=== PATIENT | female | born 1985 | race Caucasian/White ===

== ENCOUNTER 2018-06-01 21:37 | Inpatient (IN) | payer OTHER ==
[2018-06-01] MEDS: morphine 4 MG/ML VIAL IV (22:09)
[2018-06-01] MEDS: SOD CHLORIDE 0.9% 1,000 ML IV (22:09)
[2018-06-01] MEDS: ONDANSETRON 4 MG INJ IV (22:09)
[2018-06-01 22:16] LABS: ADD MAN DIFF? NO
[2018-06-01 22:23] LABS: WHITE BLOOD COUNT 8.3 10^3/ul (4.8-10.8)
[2018-06-01 22:23] LABS: BASOPHIL # 0.1 10^3/ul (0.0-0.1); BASOPHILS % 0.6 % (0.0-2.0); EOSINOPHILS # 0.1 10^3/ul (0.0-0.5); EOSINOPHILS % 1.6 % (0.0-7.0); HEMATOCRIT 36.3 % (37.0-47.0); HEMOGLOBIN 11.7 g/dl (12.0-16.0); LYMPHOCYTES # 2.4 10^3/ul (0.8-2.9); LYMPHOCYTES % 28.6 % (15.0-51.0); MEAN CORPUSCULAR HEMOGLOBIN 27.2 pg (29.0-33.0); MEAN CORPUSCULAR HGB CONC 32.2 g/dl (32.0-37.0); MEAN CORPUSCULAR VOLUME 84.4 fl (82.0-101.0); MEAN PLATELET VOLUME 10.5 fl (7.4-10.4); MONOCYTE # 0.8 10^3/ul (0.3-0.9); MONOCYTES % 9.2 % (0.0-11.0); NEUTROPHIL # 4.9 10^3/ul (1.6-7.5); NEUTROPHILS % 59.6 % (39.0-77.0); PLATELET COUNT 334 10^3/UL (140-415); RED CELL DISTRIBUTION WIDTH 14.8 % (11.5-14.5)
[2018-06-01] MEDS: KETOROLAC 30 MG INJ IV (22:25)
[2018-06-01 22:44] LABS: ALANINE AMINOTRANSFERASE 11 IU/L (13-69); ALBUMIN 4.5 g/dl (3.3-4.9); ALBUMIN/GLOBULIN RATIO 1.18; ALKALINE PHOSPHATASE 89 IU/L (42-121); ANION GAP 9 (5-13); ASPARTATE AMINO TRANSFERASE 26 IU/L (15-46); BILIRUBIN,INDIRECT 0.2 mg/dl (0-1.1); BILIRUBIN,TOTAL 0.2 mg/dl (0.2-1.3); BLOOD UREA NITROGEN 16 mg/dl (7-20); CALCIUM 10.1 mg/dl (8.4-10.2); CARBON DIOXIDE 25 mmol/L (21-31); CHLORIDE 107 mmol/L (97-110); CREATININE 0.81 mg/dl (0.44-1.00); Estimated GFR > 60 mL/min (>60); GLUCOSE 98 mg/dl (70-220); LIPASE 465 U/L (23-300); POTASSIUM 3.9 mmol/L (3.5-5.1); SODIUM 141 mmol/L (135-144); TOTAL PROTEIN 8.3 g/dl (6.1-8.1)
[2018-06-01] MEDS: HYDROmorphONE 0.5 MG/0.5 ML SYG IV (23:12)
[2018-06-01 23:19] LABS: ADD UMIC YES; UR ASCORBIC ACID NEGATIVE (NEGATIVE); UR BACTERIA FEW /HPF (NONE SEEN); UR BILIRUBIN (Dip) NEGATIVE (NEGATIVE); UR BLOOD (Dip) 1+ mg/dL (NEGATIVE); UR CLARITY SLIGHTLY CLOUDY (CLEAR); UR COLOR YELLOW (YELLOW); UR GLUCOSE (Dip) NEGATIVE (NEGATIVE); UR KETONES (Dip) NEGATIVE (NEGATIVE); UR LEUKOCYTE ESTERASE (Dip) 1+ Leu/ul (NEGATIVE); UR NITRITE (Dip) NEGATIVE (NEGATIVE); UR RBC 24 /HPF (0-5); UR SPECIFIC GRAVITY (Dip) 1.016 (1.003-1.030); UR SQUAMOUS EPITHELIAL CELL FEW /HPF (FEW); UR TOTAL PROTEIN (Dip) NEGATIVE (NEGATIVE); UR UROBILINOGEN (Dip) NEGATIVE (NEGATIVE); UR WBC 5 /HPF (0-5)
[2018-06-02] MEDS: CEFTRIAXONE 1 GM/50 ML (PMX) 50 ML IVPB ×2 (00:24→08:34)
[2018-06-02] MEDS: HYDROmorphONE 2 MG/ML SYG IV (00:52)
[2018-06-02] MEDS ORDERED: ACETAMINOPHEN 325 MG TAB PO (01:00)
[2018-06-02] MEDS ORDERED: ONDANSETRON 4 MG INJ IV (01:00)
[2018-06-02] MEDS ORDERED: NACL 0.9% 3 ML SYG IV (01:00)
[2018-06-02] MEDS: TAMSULOSIN (SR) 0.4 MG CAP PO (01:59)
[2018-06-02] MEDS: SOD CHLORIDE 0.9% 1,000 ML IV ×4 (01:59→15:58)
[2018-06-02] MEDS ORDERED: DIPHENHYDRAMINE 25 MG CAP (02:21)
[2018-06-02] MEDS: HYDROCODONE/APAP (5/325) TAB PO ×3 (02:31→16:28)
[2018-06-02] MEDS: DIPHENHYDRAMINE 25 MG CAP PO ×2 (02:33→05:35)
[2018-06-02] MEDS: traMADol 50 MG TAB PO ×2 (05:30→20:05)
[2018-06-02 06:07] LABS: ADD MAN DIFF? NO
[2018-06-02 06:11] LABS: BASOPHILS % 0.4 % (0.0-2.0); EOSINOPHILS # 0.2 10^3/ul (0.0-0.5); EOSINOPHILS % 1.5 % (0.0-7.0); HEMATOCRIT 34.6 % (37.0-47.0); HEMOGLOBIN 10.9 g/dl (12.0-16.0); LYMPHOCYTES # 2.4 10^3/ul (0.8-2.9); LYMPHOCYTES % 23.5 % (15.0-51.0); MEAN CORPUSCULAR HEMOGLOBIN 27.2 pg (29.0-33.0); MEAN CORPUSCULAR HGB CONC 31.5 g/dl (32.0-37.0); MEAN CORPUSCULAR VOLUME 86.3 fl (82.0-101.0); MEAN PLATELET VOLUME 11.5 fl (7.4-10.4); MONOCYTE # 1.1 10^3/ul (0.3-0.9); MONOCYTES % 10.8 % (0.0-11.0); NEUTROPHIL # 6.4 10^3/ul (1.6-7.5); NEUTROPHILS % 63.2 % (39.0-77.0); PLATELET COUNT 256 10^3/UL (140-415); RED BLOOD COUNT 4.01 10^6/ul (4.20-5.40); RED CELL DISTRIBUTION WIDTH 14.8 % (11.5-14.5)
[2018-06-02 06:11] LABS: WHITE BLOOD COUNT 10.1 10^3/ul (4.8-10.8)
[2018-06-02 06:41] LABS: ALANINE AMINOTRANSFERASE 17 IU/L (13-69); ALBUMIN 3.7 g/dl (3.3-4.9); ALBUMIN/GLOBULIN RATIO 1.12; ALKALINE PHOSPHATASE 65 IU/L (42-121); ANION GAP 9 (5-13); ASPARTATE AMINO TRANSFERASE 26 IU/L (15-46); BILIRUBIN,INDIRECT 0.2 mg/dl (0-1.1); BILIRUBIN,TOTAL 0.2 mg/dl (0.2-1.3); BLOOD UREA NITROGEN 16 mg/dl (7-20); CALCIUM 9.1 mg/dl (8.4-10.2); CARBON DIOXIDE 26 mmol/L (21-31); CHLORIDE 102 mmol/L (97-110); CREATININE 0.88 mg/dl (0.44-1.00); Estimated GFR > 60 mL/min (>60); GLUCOSE 90 mg/dl (70-220); MAGNESIUM 1.8 mg/dl (1.7-2.5); PHOSPHORUS 3.9 mg/dl (2.5-4.9); POTASSIUM 4.1 mmol/L (3.5-5.1); SODIUM 137 mmol/L (135-144)
[2018-06-02] MEDS: ESCITALOPRAM 10 MG TAB PO (08:40)
[2018-06-02] MEDS: DOCUSATE SODIUM 100 MG CAP PO ×3 (08:44→20:05)
[2018-06-02] MEDS: HEPARIN 5,000 UNIT/1 ML VIAL SC ×2 (10:01→20:06)
[2018-06-02] MEDS: SENNA TAB PO ×2 (14:26→20:05)
[2018-06-03] MEDS: SOD CHLORIDE 0.9% 1,000 ML IV ×3 (01:14→21:27)
[2018-06-03] MEDS: HYDROCODONE/APAP (5/325) TAB PO ×2 (01:17→21:27)
[2018-06-03 07:39] LABS: ADD MAN DIFF? NO
[2018-06-03 07:40] LABS: BASOPHIL # 0.1 10^3/ul (0.0-0.1); BASOPHILS % 0.6 % (0.0-2.0); EOSINOPHILS # 0.4 10^3/ul (0.0-0.5); EOSINOPHILS % 4.4 % (0.0-7.0); HEMATOCRIT 33.6 % (37.0-47.0); HEMOGLOBIN 10.8 g/dl (12.0-16.0); LYMPHOCYTES # 1.8 10^3/ul (0.8-2.9); LYMPHOCYTES % 22.1 % (15.0-51.0); MEAN CORPUSCULAR HEMOGLOBIN 27.2 pg (29.0-33.0); MEAN CORPUSCULAR HGB CONC 32.1 g/dl (32.0-37.0); MEAN CORPUSCULAR VOLUME 84.6 fl (82.0-101.0); MEAN PLATELET VOLUME 11.1 fl (7.4-10.4); MONOCYTE # 0.8 10^3/ul (0.3-0.9); MONOCYTES % 9.7 % (0.0-11.0); NEUTROPHILS % 62.7 % (39.0-77.0); PLATELET COUNT 281 10^3/UL (140-415); RED BLOOD COUNT 3.97 10^6/ul (4.20-5.40); RED CELL DISTRIBUTION WIDTH 14.7 % (11.5-14.5)
[2018-06-03 08:06] LABS: PHOSPHORUS 4.4 mg/dl (2.5-4.9)
[2018-06-03 08:06] LABS: MAGNESIUM 1.8 mg/dl (1.7-2.5)
[2018-06-03 08:08] LABS: ANION GAP 7 (5-13); BLOOD UREA NITROGEN 12 mg/dl (7-20); CALCIUM 9.3 mg/dl (8.4-10.2); CARBON DIOXIDE 25 mmol/L (21-31); CHLORIDE 108 mmol/L (97-110); CREATININE 0.72 mg/dl (0.44-1.00); Estimated GFR > 60 mL/min (>60); GLUCOSE 94 mg/dl (70-220); LIPASE 139 U/L (23-300); POTASSIUM 5.2 mmol/L (3.5-5.1); SODIUM 140 mmol/L (135-144)
[2018-06-03] MEDS: ESCITALOPRAM 10 MG TAB PO (08:54)
[2018-06-03] MEDS: SENNA TAB PO ×2 (08:54→21:24)
[2018-06-03] MEDS: CEFTRIAXONE 1 GM/50 ML (PMX) 50 ML IVPB (08:55)
[2018-06-03] MEDS: traMADol 50 MG TAB PO ×2 (08:55→16:30)
[2018-06-03] MEDS: DOCUSATE SODIUM 100 MG CAP PO ×3 (08:55→21:24)
[2018-06-03] MEDS: HEPARIN 5,000 UNIT/1 ML VIAL SC ×2 (08:56→21:27)
[2018-06-03 14:45] LABS: INR 0.91; PROTIME 12.4 Sec (11.9-14.9)
[2018-06-03 14:46] LABS: PARTIAL THROMBOPLASTIN TIME 32.9 Sec (23.0-35.0)
[2018-06-03] MEDS: MAGNESIUM HYDROXIDE 30ML CUP PO (17:54)
[2018-06-04] MEDS: SOD CHLORIDE 0.9% 1,000 ML IV ×2 (00:34→05:14)
[2018-06-04] MEDS: HYDROCODONE/APAP (5/325) TAB PO ×2 (03:56→11:48)
[2018-06-04 06:01] LABS: ADD MAN DIFF? NO
[2018-06-04 06:06] LABS: BASOPHILS % 0.6 % (0.0-2.0); EOSINOPHILS # 0.3 10^3/ul (0.0-0.5); EOSINOPHILS % 4.6 % (0.0-7.0); HEMATOCRIT 32.5 % (37.0-47.0); HEMOGLOBIN 10.3 g/dl (12.0-16.0); LYMPHOCYTES # 1.5 10^3/ul (0.8-2.9); LYMPHOCYTES % 22.2 % (15.0-51.0); MEAN CORPUSCULAR HEMOGLOBIN 27.3 pg (29.0-33.0); MEAN CORPUSCULAR HGB CONC 31.7 g/dl (32.0-37.0); MEAN CORPUSCULAR VOLUME 86.2 fl (82.0-101.0); MEAN PLATELET VOLUME 10.9 fl (7.4-10.4); MONOCYTE # 0.7 10^3/ul (0.3-0.9); MONOCYTES % 11.1 % (0.0-11.0); PLATELET COUNT 265 10^3/UL (140-415); RED BLOOD COUNT 3.77 10^6/ul (4.20-5.40); RED CELL DISTRIBUTION WIDTH 14.9 % (11.5-14.5)
[2018-06-04 06:06] LABS: WHITE BLOOD COUNT 6.6 10^3/ul (4.8-10.8)
[2018-06-04 06:33] LABS: MAGNESIUM 1.9 mg/dl (1.7-2.5)
[2018-06-04 06:33] LABS: PHOSPHORUS 3.7 mg/dl (2.5-4.9)
[2018-06-04 06:49] LABS: ANION GAP 7 (5-13); BLOOD UREA NITROGEN 10 mg/dl (7-20); CALCIUM 8.9 mg/dl (8.4-10.2); CARBON DIOXIDE 26 mmol/L (21-31); CHLORIDE 107 mmol/L (97-110); CREATININE 0.52 mg/dl (0.44-1.00); Estimated GFR > 60 mL/min (>60); GLUCOSE 87 mg/dl (70-220); POTASSIUM 4.7 mmol/L (3.5-5.1); SODIUM 140 mmol/L (135-144)
[2018-06-04] MEDS: CEFTRIAXONE 1 GM/50 ML (PMX) 50 ML IVPB (09:38)
[2018-06-04] MEDS: SENNA TAB PO (09:38)
[2018-06-04] MEDS: MAGNESIUM HYDROXIDE 30ML CUP PO (09:38)
[2018-06-04] MEDS: HEPARIN 5,000 UNIT/1 ML VIAL SC (09:38)
[2018-06-04] MEDS: DOCUSATE SODIUM 100 MG CAP PO ×2 (09:38→13:23)
[2018-06-04] MEDS: ESCITALOPRAM 10 MG TAB PO (09:38)
== END 2018-06-04 14:27 | disposition home or self-care (01) | DRG 690 ==
LOC: E/R 21:37 → PP2 06-02 00:09
DX: N13.6 Pyonephrosis (principal); I10 Essential (primary) hypertension; F17.200 Nicotine dependence, unspecified, uncomplicated; F32.9 Major depressive disorder, single episode, unspecified; Z87.442 Personal history of urinary calculi
CPT/HCPCS: 71045; 74018; 74176; 80048; 80053; 81001; 81025; 83690; 83735; 84100; 85025; 85610; 85730; 87086; 93005; 96374; 96375; 99285-25